=== PATIENT | female | born 1940 | race Hispanic/Latino ===

== ENCOUNTER → 2017-12-09 | Outpatient (CLI) | payer OTHER | END | disposition home or self-care (01) | LOC: SHCH 14:59 | PROVIDERS: ATTEND Internal Medicine Cardiovascular Disease | DX: I25.10 Atherosclerotic heart disease of native coronary artery without angina pectoris (principal) | CPT/HCPCS: 93880 ==

== ENCOUNTER → 2018-12-13 | Outpatient (CLI) | payer OTHER ==
[~2018-12-13] MED LIST: REGADENOSON 0.4 MG/5 ML PF SYG IVP SCH
== END | disposition home or self-care (01) ==
LOC: SHCH 08:16
PROVIDERS: ATTEND Internal Medicine Cardiovascular Disease
DX: I25.10 Atherosclerotic heart disease of native coronary artery without angina pectoris (principal)
CPT/HCPCS: 78452; 93017; 96374; A9500 ×2; J2785

== ENCOUNTER → 2019-03-02 | Outpatient (CLI) | payer OTHER | END | disposition home or self-care (01) | LOC: OIH 13:32 | PROVIDERS: ATTEND Internal Medicine Cardiovascular Disease | DX: R06.02 Shortness of breath (principal); Z98.890 Other specified postprocedural states | CPT/HCPCS: 71046 ==

== ENCOUNTER → 2019-08-17 | Outpatient (CLI) | payer OTHER | END | disposition home or self-care (01) | LOC: SHCH 14:18 | PROVIDERS: ATTEND Internal Medicine Cardiovascular Disease | DX: I51.7 Cardiomegaly (principal); R55 Syncope and collapse | CPT/HCPCS: 93306 ==

== ENCOUNTER → 2020-08-17 | Outpatient (CLI) | payer MEDICARE | END | disposition home or self-care (01) | LOC: RAH 10:57 | PROVIDERS: ATTEND Family Medicine | DX: E11.621 Type 2 diabetes mellitus with foot ulcer (principal); E11.51 Type 2 diabetes mellitus with diabetic peripheral angiopathy without gangrene; I70.293 Other atherosclerosis of native arteries of extremities, bilateral legs | CPT/HCPCS: 93922 ==

== ENCOUNTER → 2020-10-01 | Outpatient (CLI) | payer MEDICARE | END | disposition home or self-care (01) | LOC: RAH 09:59 | PROVIDERS: ATTEND Internal Medicine Cardiovascular Disease | DX: I11.9 Hypertensive heart disease without heart failure (principal); I25.10 Atherosclerotic heart disease of native coronary artery without angina pectoris; E78.5 Hyperlipidemia, unspecified; E11.9 Type 2 diabetes mellitus without complications; R55 Syncope and collapse | CPT/HCPCS: 93306; 93356 ==

== ENCOUNTER → 2020-10-08 | Outpatient (CLI) | payer MEDICARE ==
[~2020-10-08] MED LIST changes: +REGADENOSON 0.4 MG/5 ML PF SYG IVP ONE
== END | disposition home or self-care (01) ==
LOC: SHCH 09:17
PROVIDERS: ATTEND Internal Medicine Cardiovascular Disease
DX: I25.10 Atherosclerotic heart disease of native coronary artery without angina pectoris (principal); R07.0 Pain in throat; R06.00 Dyspnea, unspecified; R51.9 Headache, unspecified; Z95.1 Presence of aortocoronary bypass graft
CPT/HCPCS: 78452; 93017; 96374; A9500 ×2; J2785

== ENCOUNTER 2021-10-26 13:51 | Emergency (ER) | payer MEDICARE ==
[~2021-10-26] VITALS: Ht 142.2 cm; Wt 56.7 kg
[2021-10-26 14:24] LABS: BASOPHILS % (AUTO) 0.2 % (0.0-5.0); EOSINOPHILS % (AUTO) 0.7 % (0.0-8.0); LYMPHOCYTES % (AUTO) 7.1 % (21.0-51.0); MEAN CORPUSCULAR HEMOGLOBIN 31.1 pg (27.0-33.0); MEAN CORPUSCULAR HGB CONC 32.6 g/dL (32.0-36.0); MEAN CORPUSCULAR VOLUME 95.4 fL (79-99); MONOCYTES % (AUTO) 5.6 % (3.0-13.0); NEUTROPHILS % (AUTO) 85.9 % (40.0-77.0); PLATELET COUNT (AUTO) 194 K/uL (130-400); RED BLOOD CELL COUNT(AUTO) 3.25 MIL/uL (4.00-5.50); RED CELL DISTRIBUTION WIDTH 12.8 % (11.0-15.5); WHITE BLOOD COUNT (AUTO) 8.3 K/uL (4.8-10.8)
[2021-10-26 14:36] LABS: CREATININE 1.3 mg/dL (0.5-1.5)
[2021-10-26 14:40] LABS: TOTAL PROTEIN, SERUM 6.9 g/dL (6.0-8.3)
[2021-10-26] MEDS: FAMOTIDINE 20MG VIAL IV ONE (14:51)
[2021-10-26] MEDS: ONDANSETRON 4MG INJ IVP ONE (14:51)
[2021-10-26 16:32] LABS: APPEARANCE,URINE SL CLOUDY (CLEAR); BILIRUBIN,URINE NEGATIVE (NEGATIVE); COLOR,URINE YELLOW (YELLOW); GLUCOSE, URINE (UA) NEGATIVE (NEGATIVE); KETONES,URINE NEGATIVE (NEGATIVE); LEUKOCYTE ESTERASE ,URINE SMALL (NEGATIVE); NITRATE,URINE NEGATIVE (NEGATIVE); OCCULT BLOOD,URINE NEGATIVE (NEGATIVE); PH,URINE 5.5 (5.0-8.0); PROTEIN,URINE NEGATIVE (NEGATIVE); UROBILINOGEN,URINE 0.2 mg/dL (0.2-1.0)
[2021-10-26 16:38] LABS: BACTERIA,URINE Moderate /HPF (None Seen); RBC,URINE 0-1 /HPF (0-1); SQUAMOUS EPITHELIAL CELL,UR Rare /HPF (0-2)
[2021-10-26] MEDS ORDERED: CEPH250C2 PO (17:12)
[2021-10-26] MEDS: CEFTRIAXONE 2GM VIAL IVP ONE (17:38)
[2021-10-26] MEDS: TRAMADOL HCL 50 MG TABLET PO ONE (17:38)
[2021-10-26 18:38] VITALS: BP 134/65
== END 2021-10-26 18:40 | disposition home or self-care (01) ==
LOC: EDH 13:51
DX: N39.0 Urinary tract infection, site not specified (principal); R07.89 Other chest pain; I10 Essential (primary) hypertension; I25.10 Atherosclerotic heart disease of native coronary artery without angina pectoris; Z88.0 Allergy status to penicillin; Z88.8 Allergy status to other drugs, medicaments and biological substances
CPT/HCPCS: 99285; 96374; 71045; 96375; 84484 ×2; 80053; 85025; 87077; 87088; 87186; 81001; 36415; 93005 ×3; J3490; J0696; J2405

== ENCOUNTER 2021-10-30 16:08 | Inpatient (IN) | payer MEDICARE ==
[~2021-10-30] VITALS: Ht 149.9 cm; Wt 51.7 kg
[~2021-10-30 16:08] MED LIST changes: +CEPH250C2 PO; -REGADENOSON 0.4 MG/5 ML PF SYG IVP ONE; -REGADENOSON 0.4 MG/5 ML PF SYG IVP SCH
[2021-10-30 17:12] LABS: BASOPHILS % (AUTO) 0.4 % (0.0-5.0); EOSINOPHILS % (AUTO) 2.6 % (0.0-8.0); HEMATOCRIT 30.5 % (36-48); LYMPHOCYTES % (AUTO) 14.6 % (21.0-51.0); MEAN CORPUSCULAR HEMOGLOBIN 31.1 pg (27.0-33.0); MEAN CORPUSCULAR HGB CONC 32.5 g/dL (32.0-36.0); MEAN CORPUSCULAR VOLUME 95.9 fL (79-99); NEUTROPHILS % (AUTO) 70.7 % (40.0-77.0); PLATELET COUNT (AUTO) 251 K/uL (130-400); RED BLOOD CELL COUNT(AUTO) 3.18 MIL/uL (4.00-5.50); RED CELL DISTRIBUTION WIDTH 12.7 % (11.0-15.5); WHITE BLOOD COUNT (AUTO) 8.1 K/uL (4.8-10.8)
[2021-10-30] MEDS ORDERED: LEVOFLOXACIN 500 MG/D5W 100 ML 100 ML IV SCH (17:30)
[2021-10-30] MEDS ORDERED: ONDANSETRON 4MG INJ IVP PRN (17:30)
[2021-10-30] MEDS ORDERED: 1/2 NS 1000ML 1,000 ML IV SCH (17:30)
[2021-10-30] MEDS ORDERED: LACTULOSE 20 GM/30 ML UDCUP PO PRN (17:30)
[2021-10-30] MEDS ORDERED: NITROGLYCERIN 0.4 MG SL TAB SL PRN (17:30)
[2021-10-30 17:33] LABS: CREATININE 1.3 mg/dL (0.5-1.5)
[2021-10-30 17:37] LABS: ALBUMIN 2.9 g/dL (3.5-5.0); CRP QUANTITATIVE 178.7 mg/L (0.00-9.0); TOTAL PROTEIN, SERUM 7.2 g/dL (6.0-8.3)
[2021-10-30 18:26] LABS: APPEARANCE,URINE CLEAR (CLEAR); BILIRUBIN,URINE NEGATIVE (NEGATIVE); COLOR,URINE YELLOW (YELLOW); GLUCOSE, URINE (UA) NEGATIVE (NEGATIVE); KETONES,URINE NEGATIVE (NEGATIVE); LEUKOCYTE ESTERASE ,URINE NEGATIVE (NEGATIVE); NITRATE,URINE NEGATIVE (NEGATIVE); OCCULT BLOOD,URINE NEGATIVE (NEGATIVE); PROTEIN,URINE NEGATIVE (NEGATIVE); UROBILINOGEN,URINE 0.2 mg/dL (0.2-1.0)
[2021-10-30] MEDS ORDERED: DOCU100C33 PO (18:49)
[2021-10-30] MEDS ORDERED: LOSA100T58 PO (18:49)
[2021-10-30] MEDS ORDERED: MEMA14CA5 PO (18:50)
[2021-10-30] MEDS ORDERED: BUPR-317 PO (18:50)
[2021-10-30] MEDS ORDERED: RANO10005 PO (18:51)
[2021-10-30] MEDS ORDERED: ERGO500093 PO (18:52)
[2021-10-30] MEDS ORDERED: FURO20TA4 PO (18:53)
[2021-10-30] MEDS ORDERED: PANT40TA54 PO (18:53)
[2021-10-30] MEDS ORDERED: BACL10TA PO (18:54)
[2021-10-30] MEDS ORDERED: TRAM-355 PO (18:55)
[2021-10-30] MEDS ORDERED: HYDR-4154 PO (18:55)
[2021-10-30] MEDS ORDERED: ATOR20TA65 PO (18:56)
[2021-10-30] MEDS ORDERED: ARIP5TAB56 PO (18:57)
[2021-10-30] MEDS ORDERED: TRAZ-185 PO (18:58)
[2021-10-30] MEDS ORDERED: KETO15CR2 TP (18:59)
[2021-10-30 19:00] VITALS: BP 183/49
[2021-10-30] MEDS ORDERED: CYCL1DRO14 OP (19:00)
[2021-10-30] MEDS ORDERED: LOTE8.3D OP (19:00)
[2021-10-30 19:22] LABS: ERYTHROCYTE SEDIMENTATION RATE 100 MM/HR (0-30)
[2021-10-30] MEDS: CLONIDINE HCL 0.1 MG TABLET PO PRN (21:31)
[2021-10-30] MEDS: INSULIN HUMULIN R 100 UNIT/ML 3ML SQ SCH (21:35)
[2021-10-31] VITALS: BP 143/58
[2021-10-31 04:00] VITALS: BP 136/76
[2021-10-31] MEDS: IPRATROPIUM/ALBUTEROL SULFATE 3 ML SOLUTION IH PRN ×2 (05:40→10:26)
[2021-10-31 05:57] LABS: HEMATOCRIT 28.5 % (36-48); MEAN CORPUSCULAR HEMOGLOBIN 31.2 pg (27.0-33.0); MEAN CORPUSCULAR HGB CONC 32.6 g/dL (32.0-36.0); MEAN CORPUSCULAR VOLUME 95.6 fL (79-99); RED BLOOD CELL COUNT(AUTO) 2.98 MIL/uL (4.00-5.50); RED CELL DISTRIBUTION WIDTH 12.9 % (11.0-15.5); WHITE BLOOD COUNT (AUTO) 9.3 K/uL (4.8-10.8)
[2021-10-31 06:25] LABS: CREATININE 1.2 mg/dL (0.5-1.5); MAGNESIUM 1.8 mg/dL (1.80-2.40); PHOSPHORUS 3.5 mg/dL (2.5-4.9); POTASSIUM 4.5 mmol/L (3.5-5.1)
[2021-10-31] MEDS ORDERED: ACETAMINOPHEN 325 MG TAB PO PRN (06:30)
[2021-10-31] MEDS: INSULIN HUMULIN R 100 UNIT/ML 3ML SQ SCH ×4 (06:42→20:36)
[2021-10-31 07:18] VITALS: BP 133/73
[2021-10-31] MEDS: FUROSEMIDE 20MG VIAL IV SCH (09:00)
[2021-10-31] MEDS ORDERED: SOLU-MEDROL 40MG VIAL IVP SCH (09:00)
[2021-10-31 12:16] VITALS: BP 147/42
[2021-10-31] MEDS: FAMOTIDINE 20MG VIAL IV SCH (17:27)
[2021-10-31] MEDS ORDERED: IPRATROPIUM/ALBUTEROL SULFATE 3 ML SOLUTION IH PRN (17:30)
[2021-10-31 19:00] VITALS: BP 146/58
[2021-10-31] MEDS: SOLU-MEDROL 40MG VIAL IVP SCH (20:37)
[2021-11-01] VITALS (7 sets, daily range): BP systolic 150–183; BP diastolic 50–75
[2021-11-01 05:31] LABS: BASOPHILS % (AUTO) 0.1 % (0.0-5.0); HEMATOCRIT 27.7 % (36-48); LYMPHOCYTES % (AUTO) 7.1 % (21.0-51.0); MEAN CORPUSCULAR HEMOGLOBIN 30.8 pg (27.0-33.0); MEAN CORPUSCULAR HGB CONC 33.2 g/dL (32.0-36.0); MEAN CORPUSCULAR VOLUME 92.6 fL (79-99); MONOCYTES % (AUTO) 2.4 % (3.0-13.0); NEUTROPHILS % (AUTO) 89.4 % (40.0-77.0); PLATELET COUNT (AUTO) 265 K/uL (130-400); RED BLOOD CELL COUNT(AUTO) 2.99 MIL/uL (4.00-5.50); RED CELL DISTRIBUTION WIDTH 12.1 % (11.0-15.5); WHITE BLOOD COUNT (AUTO) 8.4 K/uL (4.8-10.8)
[2021-11-01 06:01] LABS: ALBUMIN 2.4 g/dL (3.5-5.0); CREATININE 1.3 mg/dL (0.5-1.5); POTASSIUM 4.3 mmol/L (3.5-5.1); TOTAL PROTEIN, SERUM 6.2 g/dL (6.0-8.3)
[2021-11-01] MEDS: FAMOTIDINE 20MG VIAL IV SCH (08:35)
[2021-11-01] MEDS: SOLU-MEDROL 40MG VIAL IVP SCH (08:35)
[2021-11-01] MEDS: FUROSEMIDE 20MG VIAL IV SCH (08:36)
[2021-11-01] MEDS: ENOXAPARIN SODIUM 30 MG/0.3 ML SQ SCH (08:36)
[2021-11-01] MEDS: INSULIN HUMULIN R 100 UNIT/ML 3ML SQ SCH ×4 (08:37→20:42)
[2021-11-01] MEDS: IPRATROPIUM/ALBUTEROL SULFATE 3 ML SOLUTION IH SCH ×3 (11:23→23:11)
[2021-11-01] MEDS ORDERED: LEVOFLOXACIN 250 MG/D5W 50ML 50 ML IVPB SCH (18:00)
[2021-11-01] MEDS: CLONIDINE HCL 0.1 MG TABLET PO PRN (20:56)
[2021-11-02 03:41] VITALS: BP 127/46
[2021-11-02] MEDS: INSULIN HUMULIN R 100 UNIT/ML 3ML SQ SCH (05:56)
[2021-11-02] MEDS: IPRATROPIUM/ALBUTEROL SULFATE 3 ML SOLUTION IH SCH (06:31)
[2021-11-02] MEDS: FUROSEMIDE 20MG VIAL IV SCH (08:52)
[2021-11-02] MEDS: ENOXAPARIN SODIUM 30 MG/0.3 ML SQ SCH (08:52)
[2021-11-02] MEDS: FAMOTIDINE 20MG VIAL IV SCH (08:52)
[2021-11-02] MEDS ORDERED: PREDNISONE 20 MG TABLET PO ONE (09:00)
== END 2021-11-02 10:30 | disposition home or self-care (01) | DRG 193 ==
LOC: EDH 16:08 → OBSVTOIN 16:26 → 3BH 16:26
PROVIDERS: ADMIT Internal Medicine; ATTEND Internal Medicine
DX: J18.9 Pneumonia, unspecified organism (principal); J96.01 Acute respiratory failure with hypoxia; N17.9 Acute kidney failure, unspecified; I13.0 Hypertensive heart and chronic kidney disease with heart failure and stage 1 through stage 4 chronic kidney disease, or unspecified chronic kidney disease; I50.32 Chronic diastolic (congestive) heart failure; Z20.822 Contact with and (suspected) exposure to COVID-19; B95.61 Methicillin susceptible Staphylococcus aureus infection as the cause of diseases classified elsewhere; D63.1 Anemia in chronic kidney disease; E11.22 Type 2 diabetes mellitus with diabetic chronic kidney disease; E11.65 Type 2 diabetes mellitus with hyperglycemia; E78.5 Hyperlipidemia, unspecified; E86.9 Volume depletion, unspecified; G30.9 Alzheimer's disease, unspecified; I25.10 Atherosclerotic heart disease of native coronary artery without angina pectoris; F02.80 Dementia in other diseases classified elsewhere, unspecified severity, without behavioral disturbance, psychotic disturbance, mood disturbance, and anxiety; I48.91 Unspecified atrial fibrillation; J84.10 Pulmonary fibrosis, unspecified; N18.9 Chronic kidney disease, unspecified; Z79.84 Long term (current) use of oral hypoglycemic drugs; Z83.3 Family history of diabetes mellitus; Z86.16 Personal history of COVID-19; Z87.440 Personal history of urinary (tract) infections; Z95.1 Presence of aortocoronary bypass graft
CPT/HCPCS: 36415; 71250; 80048; 80053; 81003; 82948; 83605; 83735; 83880; 84100; 85025; 85027; 85651; 86140; 87040; 87088; 87635; 87804; 93306; 93356; 94640; 94760; G0378; J1650; J1815; J1940; J1956; J2920; J3490

== ENCOUNTER 2021-11-14 16:57 | Emergency (ER) | payer MEDICARE ==
[~2021-11-14 16:57] MED LIST changes: +ARIP5TAB56 PO; +ATOR20TA65 PO; +BACL10TA PO; +BUPR-317 PO; -CEPH250C2 PO; +CYCL1DRO14 OP; +DOCU100C33 PO; +ERGO500093 PO; +FURO20TA4 PO; +HYDR-4154 PO; +KETO15CR2 TP; +LOSA100T58 PO; +LOTE8.3D OP; +MEMA14CA5 PO; +PANT40TA54 PO; +RANO10005 PO; +TRAM-355 PO; +TRAZ-185 PO
[2021-11-14 17:34] LABS: HEMATOCRIT 36.7 % (36-48); LYMPHOCYTES % (AUTO) 7.7 % (21.0-51.0); MEAN CORPUSCULAR HEMOGLOBIN 30.9 pg (27.0-33.0); MEAN CORPUSCULAR HGB CONC 31.9 g/dL (32.0-36.0); MEAN CORPUSCULAR VOLUME 96.8 fL (79-99); MONOCYTES % (AUTO) 3.2 % (3.0-13.0); NEUTROPHILS % (AUTO) 88.2 % (40.0-77.0); PLATELET COUNT (AUTO) 185 K/uL (130-400); RED BLOOD CELL COUNT(AUTO) 3.79 MIL/uL (4.00-5.50); RED CELL DISTRIBUTION WIDTH 14.7 % (11.0-15.5); WHITE BLOOD COUNT (AUTO) 8.1 K/uL (4.8-10.8)
[2021-11-14 17:42] LABS: CREATININE 1.6 mg/dL (0.5-1.5); POTASSIUM 4.9 mmol/L (3.5-5.1)
[2021-11-14 17:51] LABS: ALBUMIN 2.9 g/dL (3.5-5.0); MAGNESIUM 2.2 mg/dL (1.80-2.40); TOTAL PROTEIN, SERUM 6.1 g/dL (6.0-8.3)
[2021-11-14 18:05] LABS: B-TYPE NATRIURETIC PEPTIDE 249 pg/mL (0-100)
[2021-11-14 19:39] VITALS: BP 156/48
== END 2021-11-14 21:02 | disposition home or self-care (01) ==
LOC: EDH 16:57
DX: R07.89 Other chest pain (principal); R06.02 Shortness of breath; G30.9 Alzheimer's disease, unspecified; F02.80 Dementia in other diseases classified elsewhere, unspecified severity, without behavioral disturbance, psychotic disturbance, mood disturbance, and anxiety; F41.9 Anxiety disorder, unspecified; I10 Essential (primary) hypertension; M19.90 Unspecified osteoarthritis, unspecified site; E11.9 Type 2 diabetes mellitus without complications; Z88.0 Allergy status to penicillin; Z95.1 Presence of aortocoronary bypass graft; Z96.652 Presence of left artificial knee joint; Z79.899 Other long term (current) drug therapy
CPT/HCPCS: 36415; 71045; 80053; 83735; 83880; 84484; 85025; 93005

== ENCOUNTER 2022-09-03 20:48 | Observation (INO) | payer MEDICARE ==
[~2022-09-03] VITALS: Ht 149.9 cm; Wt 55.3 kg
[~2022-09-03 20:48] MED LIST changes: -LOSA100T58 PO; +LOSA100T59 PO
[2022-09-03] MEDS ORDERED: MAGNESIUM HYDROXIDE 30 ML/UDCUP PO SCH (21:30)
[2022-09-03 21:48] LABS: BASOPHILS % (AUTO) 0.9 % (0.0-5.0); EOSINOPHILS % (AUTO) 0.9 % (0.0-8.0); HEMATOCRIT 33.5 % (36-48); LYMPHOCYTES % (AUTO) 10.2 % (21.0-51.0); MEAN CORPUSCULAR HEMOGLOBIN 31.8 pg (27.0-33.0); MEAN CORPUSCULAR HGB CONC 33.4 g/dL (32.0-36.0); MEAN CORPUSCULAR VOLUME 95.2 fL (79-99); MONOCYTES % (AUTO) 6.7 % (3.0-13.0); NEUTROPHILS % (AUTO) 77.3 % (40.0-77.0); PLATELET COUNT (AUTO) 198 K/uL (130-400); RED BLOOD CELL COUNT(AUTO) 3.52 MIL/uL (4.00-5.50); RED CELL DISTRIBUTION WIDTH 12.7 % (11.0-15.5); WHITE BLOOD COUNT (AUTO) 7.4 K/uL (4.8-10.8)
[2022-09-03 22:10] LABS: ALBUMIN 3.8 g/dL (3.5-5.0); CREATININE 1.5 mg/dL (0.5-1.5); POTASSIUM 5.4 mmol/L (3.5-5.1); TOTAL PROTEIN, SERUM 6.8 g/dL (6.0-8.3)
[2022-09-03] MEDS ORDERED: 0.9%NACL 1000ML 1,000 ML IV ONE (22:30)
[2022-09-03 23:32] LABS: APPEARANCE,URINE CLOUDY (CLEAR); BILIRUBIN,URINE NEGATIVE (NEGATIVE); COLOR,URINE YELLOW (YELLOW); GLUCOSE, URINE (UA) NEGATIVE (NEGATIVE); KETONES,URINE NEGATIVE (NEGATIVE); LEUKOCYTE ESTERASE ,URINE 500 Leu/uL (NEGATIVE); NITRATE,URINE NEGATIVE (NEGATIVE); OCCULT BLOOD,URINE NEGATIVE (NEGATIVE); PROTEIN,URINE NEGATIVE (NEGATIVE); UROBILINOGEN,URINE 0.2 mg/dL (0.2-1.0)
[2022-09-03 23:39] LABS: BACTERIA,URINE RARE /HPF (None Seen); MUCUS,URINE RARE LPF (None Seen); RBC,URINE 0-1 /HPF (0-1); WBC,URINE 26-50 /HPF (0-1)
[2022-09-04] MEDS: 0.9%NACL 1000ML 1,000 ML IV SCH ×3 (02:28→20:40)
[2022-09-04 07:01] LABS: BASOPHILS % (AUTO) 0.6 % (0.0-5.0); EOSINOPHILS % (AUTO) 2.8 % (0.0-8.0); HEMATOCRIT 32.1 % (36-48); LYMPHOCYTES % (AUTO) 20.5 % (21.0-51.0); MEAN CORPUSCULAR HEMOGLOBIN 31.2 pg (27.0-33.0); MEAN CORPUSCULAR HGB CONC 33.3 g/dL (32.0-36.0); MEAN CORPUSCULAR VOLUME 93.6 fL (79-99); MONOCYTES % (AUTO) 8.4 % (3.0-13.0); NEUTROPHILS % (AUTO) 66.1 % (40.0-77.0); PLATELET COUNT (AUTO) 193 K/uL (130-400); RED BLOOD CELL COUNT(AUTO) 3.43 MIL/uL (4.00-5.50); RED CELL DISTRIBUTION WIDTH 12.3 % (11.0-15.5); WHITE BLOOD COUNT (AUTO) 7.7 K/uL (4.8-10.8)
[2022-09-04 07:27] LABS: ALBUMIN 3.3 g/dL (3.5-5.0); CREATININE 1.1 mg/dL (0.5-1.5); POTASSIUM 4.3 mmol/L (3.5-5.1)
[2022-09-04] MEDS ORDERED: ERGO500093 PO (10:00)
[2022-09-04] MEDS ORDERED: ATOR20TA65 PO (10:00)
[2022-09-04] MEDS ORDERED: ARIP5TAB56 PO (10:00)
[2022-09-04] MEDS ORDERED: SODI10PO2 PO (10:00)
[2022-09-04] MEDS ORDERED: TRAZ-185 PO (10:00)
[2022-09-04] MEDS ORDERED: BACL10TA PO (10:00)
[2022-09-04] MEDS ORDERED: BUPR-317 PO (10:00)
[2022-09-04] MEDS ORDERED: HYDR-3421 PO (10:00)
[2022-09-04] MEDS ORDERED: PANT40TA54 PO (10:00)
[2022-09-04] MEDS ORDERED: HYDR-4154 PO (10:00)
[2022-09-04] MEDS ORDERED: LOSA100T59 PO (10:00)
[2022-09-04] MEDS ORDERED: MEMA14CA5 PO (10:00)
[2022-09-04] MEDS ORDERED: RANO10005 PO (10:00)
[2022-09-04] MEDS ORDERED: BUSP5TAB3 PO (10:07)
[2022-09-04] MEDS ORDERED: AMLO-257 PO (10:07)
[2022-09-04] MEDS ORDERED: CARB-39 PO (10:07)
[2022-09-04] MEDS ORDERED: CELE-84 PO (10:07)
[2022-09-04] MEDS ORDERED: CETI10TA57 PO (10:07)
[2022-09-04] MEDS ORDERED: CIPR-278 PO (10:07)
[2022-09-04] MEDS ORDERED: IPRATROPIUM/ALBUTEROL SULFATE 3 ML SOLUTION IH ONE (10:46)
[2022-09-04] MEDS: IPRATROPIUM/ALBUTEROL SULFATE 3 ML SOLUTION IH SCH ×3 (11:29→22:57)
[2022-09-04] MEDS: HYDROXYZINE 25 MG TABLET PO SCH (12:00)
[2022-09-04] MEDS: PANTOPRAZOLE 40 MG TAB DR PO SCH (12:00)
[2022-09-04] MEDS: AMLODIPINE 5 MG TAB PO SCH (12:00)
[2022-09-04] MEDS: LEVODOPA PO SCH ×2 (14:00→20:42)
[2022-09-04] MEDS: [UNRECOGNIZED DRUG - OTHER] PO SCH ×2 (14:00→20:42)
[2022-09-04] MEDS: CARBIDOPA PO SCH ×2 (14:00→20:42)
[2022-09-04] MEDS: BUSPIRONE HCL 5 MG TABLET PO SCH ×2 (14:00→20:39)
[2022-09-04 14:30] VITALS: BP 143/66
[2022-09-04 16:00] VITALS: BP 140/69
[2022-09-04] MEDS ORDERED: NA ZIRCON CYCLOSIL(LOKELMA 10GM) PO SCH (16:30)
[2022-09-04] MEDS: LACTULOSE 20 GM/30 ML UDCUP PO SCH ×2 (17:00→20:41)
[2022-09-04] MEDS: BACLOFEN 10 MG TABLET PO SCH (17:00)
[2022-09-04 20:00] VITALS: BP 131/44
[2022-09-04] MEDS: LEVOFLOXACIN 500 MG TABLET PO SCH (20:38)
[2022-09-04] MEDS: TRAZODONE HCL 50 MG TAB PO SCH (20:39)
[2022-09-04] MEDS: RANOLAZINE 500 MG TAB.SR.12H PO SCH (20:39)
[2022-09-04] MEDS ORDERED: ATORVASTATIN 20 MG TABLET PO SCH (21:00)
[2022-09-04] MEDS ORDERED: INSULIN GLARGINE 100 UNITS/ML 10 ML VIAL SQ ONE ×2 (21:00→22:00)
[2022-09-04] MEDS ORDERED: ARIPIPRAZOLE 5 MG TABLET PO SCH (21:00)
[2022-09-04] MEDS ORDERED: CETIRIZINE HCL 5 MG TABLET PO SCH (21:00)
[2022-09-04] MEDS: KETOCONAZOLE 15 GM CREAM.GM. TP SCH (23:27)
[2022-09-05] VITALS: BP 121/43
[2022-09-05 04:00] VITALS: BP 148/64
[2022-09-05] MEDS: IPRATROPIUM/ALBUTEROL SULFATE 3 ML SOLUTION IH SCH ×2 (06:26→12:06)
[2022-09-05 08:00] VITALS: BP 116/42
[2022-09-05] MEDS ORDERED: CELECOXIB 200 MG CAP PO SCH (09:00)
[2022-09-05] MEDS ORDERED: LOSARTAN 100 MG TABLET PO SCH (09:00)
[2022-09-05] MEDS: LEVODOPA PO SCH ×2 (09:00→14:00)
[2022-09-05] MEDS ORDERED: HYDRALAZINE 25MG TABLET PO SCH (09:00)
[2022-09-05] MEDS: [UNRECOGNIZED DRUG - OTHER] PO SCH ×2 (09:00→14:00)
[2022-09-05] MEDS: CARBIDOPA PO SCH ×2 (09:00→14:00)
[2022-09-05] MEDS ORDERED: BUPROPION HCL 150 MG TABLET.SA PO SCH (09:00)
[2022-09-05] MEDS: RANOLAZINE 500 MG TAB.SR.12H PO SCH (10:01)
[2022-09-05] MEDS: LACTULOSE 20 GM/30 ML UDCUP PO SCH ×3 (10:01→17:00)
[2022-09-05] MEDS: LEVOFLOXACIN 500 MG TABLET PO SCH (10:02)
[2022-09-05] MEDS: BUSPIRONE HCL 5 MG TABLET PO SCH ×2 (10:02→14:32)
[2022-09-05] MEDS: KETOCONAZOLE 15 GM CREAM.GM. TP SCH (10:04)
[2022-09-05] MEDS: 0.9%NACL 1000ML 1,000 ML IV SCH (10:04)
[2022-09-05 12:00] VITALS: BP 116/51
[2022-09-05] MEDS: AMLODIPINE 5 MG TAB PO SCH (12:00)
[2022-09-05] MEDS: PANTOPRAZOLE 40 MG TAB DR PO SCH (12:23)
[2022-09-05] MEDS: HYDROXYZINE 25 MG TABLET PO SCH (12:23)
[2022-09-05 15:47] VITALS: BP 156/61
[2022-09-05] MEDS: TRAZODONE HCL 50 MG TAB PO SCH (17:28)
[2022-09-05] MEDS: BACLOFEN 10 MG TABLET PO SCH (17:28)
[2022-09-05] MEDS ORDERED: INSULIN GLARGINE 100 UNITS/ML 10 ML VIAL SQ SCH (21:00)
== END 2022-09-05 18:30 | disposition home or self-care (01) ==
LOC: EDH 20:48 → EDHIP 22:42 → 3BH 09-04 14:38
PROVIDERS: ADMIT Internal Medicine; ATTEND Internal Medicine
DX: K56.41 Fecal impaction (principal); K56.609 Unspecified intestinal obstruction, unspecified as to partial versus complete obstruction; N39.0 Urinary tract infection, site not specified; E87.1 Hypo-osmolality and hyponatremia; R10.9 Unspecified abdominal pain; K82.8 Other specified diseases of gallbladder; G30.9 Alzheimer's disease, unspecified; F02.80 Dementia in other diseases classified elsewhere, unspecified severity, without behavioral disturbance, psychotic disturbance, mood disturbance, and anxiety; D64.9 Anemia, unspecified; I12.9 Hypertensive chronic kidney disease with stage 1 through stage 4 chronic kidney disease, or unspecified chronic kidney disease; N18.9 Chronic kidney disease, unspecified; E11.22 Type 2 diabetes mellitus with diabetic chronic kidney disease; E78.5 Hyperlipidemia, unspecified; E86.0 Dehydration; E87.5 Hyperkalemia; G20 Parkinson's disease; I25.10 Atherosclerotic heart disease of native coronary artery without angina pectoris; J84.10 Pulmonary fibrosis, unspecified; K44.9 Diaphragmatic hernia without obstruction or gangrene; L30.4 Erythema intertrigo; M19.90 Unspecified osteoarthritis, unspecified site; Z16.24 Resistance to multiple antibiotics; Z88.0 Allergy status to penicillin; Z90.710 Acquired absence of both cervix and uterus; Z95.1 Presence of aortocoronary bypass graft; Z96.652 Presence of left artificial knee joint; Z98.84 Bariatric surgery status; Z79.899 Other long term (current) drug therapy; Z98.890 Other specified postprocedural states
CPT/HCPCS: 99285; 84484; 80053 ×2; 83690; 85025 ×2; 87077; 87088; 87186; 81001; 36415 ×2; 74176; 93005; 96360; 96361 ×2; 82948 ×6; 76700; 94640 ×5; 94664; 97161; 97116; G0378 ×41; J7030